=== PATIENT | male | born 1995 | race African-American/Black ===

== ENCOUNTER 2017-03-17 17:57 | Emergency (ER) | payer SELFPAY ==
[~2017-03-17] VITALS: Ht 180.3 cm; Wt 136.0 kg
[~2017-03-17 17:57] MED LIST: ALBU6.7H INH; PRED50 PO; ZITH250T PO
[2017-03-17 17:58] VITALS: BP 147/71; PULSE 107; RESP 20; TEMP 103; O2SAT 96
[2017-03-17] MEDS ORDERED: IBUPROFEN 800 MG TAB PO ONE (18:45)
--- NOTE | 2017-03-17 20:21 | PD ---
HPI Chief Complaint: Cold / Flu Symptoms Time Seen by Provider: 18:36 Travel History International Travel<30 days: No Contact w/Intl Traveler<30days: No Traveled to known affect area: No History of Present Illness HPI Pt is a 21-year-old male presented to the emergency department for evaluation of headache, diarrhea, nasal congestion, cough, body aches. Patient states his symptoms started gradually yesterday. He denies any nausea, vomiting, chest pain, abdominal pain or shortness of breath. Patient took ibuprofen yesterday which seemed to alleviate his symptoms however he has not taken any today. He denies any other complaints at this time. FOR[facility]LY [facility] Past Medical History Medical History: Denies Significant Hx Social History Alcohol Use: No Tobacco Use: No Substance Use: No Allergies-Medications (Allergen,Severity, Reaction): Coded Allergies: No Known Allergies (Unverified , 11/18/15) Reported Meds & Prescriptions Reported Meds & Active Scripts Active Zithromax Z-Juancho (Azithromycin) 250 Mg Tab 250 Mg PO DIRECTED 500 MG (2 TABLETS) PO ON DAY 1, THEN 250 MG (1 TABLET) PO ON DAYS 2 TO 5. Proventil Hfa (Albuterol Sulfate) 6.7 Gm Aero 2 Puff INH Q4 PRN * SHAKE WELL BEFORE USE * Deltasone 50 Mg Tab (Prednisone) 50 Mg Tab 50 Mg PO DAILY 5 Days Review of Systems Except as stated in HPI: all other systems reviewed are Neg General / Constitutional: Positive: Fever, Chills HENT: Positive: Rhinitis, Congestion Cardiovascular: No: Chest Pain or Discomfort Respiratory: Positive: Cough, No: Shortness of Breath Gastrointestinal: No: Nausea, Vomiting, Abdominal Pain Musculoskeletal: Positive: Myalgias Physical Exam Narrative GENERAL: Well-developed, well-nourished, alert male. Presenting in no acute distress. SKIN: Warm and dry. HEAD: Normocephalic. EYES: No scleral icterus. No injection or drainage. CARDIOVASCULAR: Mildly tachycardic. RESPIRATORY: No accessory muscle use. Data Data Last Documented VS Vital Signs Date Time Temp Pulse Resp B/P (MAP) Pulse Ox O2 Delivery O2 Flow Rate FiO2 03/17/17 17:58 103.0 107 20 147/71 (96) 96 Room Air Orders Orders Group A Rapid Strep Screen (03/17/17 18:38) Influenzae A/B Antigen (03/17/17 18:38) Ibuprofen (Motrin) (03/17/17 18:45) Strep Culture (Group A) (03/17/17 19:10) MDM Medical Decision Making Medical Screen Exam Complete: Yes Emergency Medical Condition: Yes Interpretation(s) Vital Signs Date Time Temp Pulse Resp B/P (MAP) Pulse Ox O2 Delivery O2 Flow Rate FiO2 03/17/17 17:58 103.0 107 20 147/71 (96) 96 Room Air Differential Diagnosis Influenza versus strep versus viral syndrome versus other Narrative Course Patient is a 21-year-old male presenting to emergency department for evaluation of cold of flu symptoms that started yesterday. Patient is mildly tachycardic and febrile on arrival. Labs ordered and pending. Ibuprofen ordered. Patient is awaiting bed placement. Patient was called be placed in a bed, he was no longer found in the emergency department. Patient left AMA. Upon review of lab results, patient is positive for influenza. Diagnosis Primary Impression: Left against medical advice Yolis Arizmendi Mar 17, 2017 20:21
== END 2017-03-17 19:58 | disposition left against medical advice (07) ==
LOC: NED 17:57
DX: J11.1 Influenza due to unidentified influenza virus with other respiratory manifestations (principal)
CPT/HCPCS: 87081; 87804; 87880; 99283